=== PATIENT | female | born 1990 | race Caucasian/White ===

== ENCOUNTER 2016-11-18 12:11 | Emergency (ER) | payer MEDICAID, OTHER ==
[~2016-11-18] VITALS: Ht 154.9 cm; Wt 71.8 kg
[2016-11-18 12:48] VITALS: Ht 154.9 cm; Wt 71.8 kg
[2016-11-18] MEDS ORDERED: LORAZEPAM 1 MG TAB PO ONE (14:10)
--- NOTE | 2016-11-18 14:18 | ERA ---
ER Documentation Chief Complaint Date/Time DATE: 11/18/16 TIME: 14:14 Chief Complaint FAINTED THIS MORNING AT 10 AM, "I CANNOT FEEL MY HANDS/FEET" HPI 26-year-old female who presents with her . The patient describes an episode of syncope this morning around 10 AM. She states a prodrome of feeling worried, her hands started to become numb and she started to have cramping of bilateral hands and bilateral feet with perioral paresthesias. The patient then states that she was sitting in a chair her vision closing and she passed out. She denied any prodrome of chest pain but did no palpitations. She has noted increasing social stressors recently. She feels very anxious currently. No recent travel, immobilization, calf swelling, smoking, family history of DVT. She denies pleuritic pain. ROS All systems reviewed and are negative except as per history of present illness. Medications Home Meds Active Scripts Lorazepam* (Lorazepam*) 1 Mg Tablet, 1 MG PO Q8H Y for ANXIETY, #10 TAB Prov:JULIANA ROMERO MD 11/18/16 Cephalexin* (Keflex*) 500 Mg Capsule, 500 MG PO BID for 7 Days, CAP Prov:JULIANA ROMERO MD 11/18/16 Allergies Allergies: Coded Allergies: No Known Allergy (Unverified , 03/09/14) PMhx/Soc Medical and Surgical Hx: pt denies Medical Hx History of Surgery: No Anesthesia Reaction: No Hx Neurological Disorder: No Hx Respiratory Disorders: No Hx Cardiac Disorders: No Hx Psychiatric Problems: No Hx Miscellaneous Medical Probl: No Hx Alcohol Use: No Hx Substance Use: No Hx Tobacco Use: No FmHx Family History: No coronary disease, No diabetes Physical Exam Vitals Vital Signs Date Time Temp Pulse Resp B/P Pulse Ox O2 Delivery O2 Flow Rate FiO2 11/18/16 12:48 98.1 67 20 117/65 99 Physical Exam General: Extremely anxious with obvious carpopedal spasms Head: Normocephalic, atraumatic. Eyes: Pupils equally reactive, EOM intact ENT: Moist mucous membranes Neck: Supple, no lymphadenopathy Respiratory: Lungs clear bilaterally, no distress Cardiovascular: RRR, no murmurs, rubs, or gallops Abdominal: Soft, non-tender, non-distended, no peritoneal signs : Deferred MSK: No edema, no unilateral swelling, 5/5 strength, no pulse deficits Neurologic: Alert and oriented, moving all extremities, normal speech, no focal weakness, no cerebellar signs Skin: No rash Psych: Anxious mood Result Diagram: 11/18/16 1420 Results 24 hrs Laboratory Tests Test 11/18/16 14:20 11/18/16 14:21 White Blood Count 14.810^3/ul Red Blood Count 4.6010^6/ul Hemoglobin 13.6g/dl Hematocrit 42.2% Mean Corpuscular Volume 91.7fl Mean Corpuscular Hemoglobin 29.6pg Mean Corpuscular Hemoglobin Concent 32.2g/dl Red Cell Distribution Width 13.6% Platelet Count 35244^3/UL Mean Platelet Volume 9.4fl Neutrophils % 88.6% Lymphocytes % 8.7% Monocytes % 2.1% Eosinophils % 0.1% Basophils % 0.2% Nucleated Red Blood Cells % 0.0/100WBC Neutrophils # 13.110^3/ul Lymphocytes # 1.310^3/ul Monocytes # 0.310^3/ul Eosinophils # 0.010^3/ul Basophils # 0.010^3/ul Nucleated Red Blood Cells # 0.010^3/ul Serum HCG, Qualitative NEGATIVE Bedside Urine pH (LAB) 6.0 Bedside Urine Protein (LAB) Trace Bedside Urine Glucose (UA) Negative Bedside Urine Ketones (LAB) Trace Bedside Urine Blood 2+ Bedside Urine Nitrite (LAB) Positive Bedside Urine Leukocyte Esterase (L Trace Current Medications Medications (Trade) Dose Ordered Sig/Renetta Route PRN Reason Start Time Stop Time Status Last Admin Dose Admin Lorazepam (Ativan) 1 mg ONCE ONCE PO 11/18/16 14:10 11/18/16 14:11 DC 11/18/16 14:24 Procedures/MDM EKG, MONITORS, & DIAGNOSTIC IMAGING: EKG: I reviewed and interpreted a 12-lead EKG. Rhythm: Normal sinus rhythm Ectopy: None Intervals: No abnormalities ST segments: No elevations or depressions T waves: No contiguous inversions LAB INTERPRETATION: Negative hCG, no anemia, urinary tract infection MEDICAL DECISION MAKING: The patient presents with a syncopal episode that is very consistent with likely vasovagal syncope. The patient clearly describes what appears to be acute hyperventilation syndrome. The patient had carpal pedal spasms, perioral paresthesias and then a syncopal episode. The patient is extremely anxious in the emergency department. She has no prodrome of chest pain or shortness of breath. No pleuritic pain, no travel or immobilization. The patient meets the PERC RULE out criteria. Thus, less than 2% risk of pulmonary embolism with better alternative diagnosis. No indication for d-dimer or CT pulmonary angiogram at this time. No headache to suggest subarachnoid hemorrhage. She has no exertional syncope to suggest cardiomyopathy. No murmur. The patient was given reassurance. The patient states that she occasionally has heavy menstrual cycles. A CBC would be appropriate, EKG, hCG. If negative the patient can be safely discharged home with close primary care follow-up. I recommend stress reduction techniques. ER COURSE: Ativan provided. The patient's urine does suggest possible UTI. Slight leukocytosis reflective of this process. Patient will be started on Keflex. The patient has no signs of pyelonephritis. No fever. Patient has improved symptoms of Ativan. Outpatient follow-up recommended. I kept the patient and/or family informed of laboratory and diagnostic imaging results throughout the emergency room course. DISPOSITION PLAN: We discussed follow up with the patient's primary care doctor within 24 to 48 hours as needed. We also discussed return to the emergency room for worsening symptoms or worsening condition. Outpatient referral: [None required] Discharge Medications: Ativan, Keflex Departure Diagnosis: Primary Impression: Vasovagal syncope Additional Impressions: Acute hyperventilation syndrome UTI (urinary tract infection) Qualified Code: N39.0 - Urinary tract infection without hematuria, site unspecified Condition: Stable JULIANA ROMERO MD Nov 18, 2016 14:18
[2016-11-18 14:20] LABS: URINE BLOOD (Dip) POC 2+ (NEGATIVE)
[2016-11-18 14:32] LABS: ADD SCAN DIFF NO
[2016-11-18 14:34] LABS: BASOPHILS % 0.2 % (0.0-2.0); EOSINOPHILS % 0.1 % (0.0-7.0); HEMATOCRIT 42.2 % (37.0-47.0); HEMOGLOBIN 13.6 g/dl (12.0-16.0); LYMPHOCYTES # 1.3 10^3/ul (0.8-2.9); LYMPHOCYTES % 8.7 % (15.0-51.0); MEAN CORPUSCULAR HEMOGLOBIN 29.6 pg (29.0-33.0); MEAN CORPUSCULAR HGB CONC 32.2 g/dl (32.0-37.0); MEAN CORPUSCULAR VOLUME 91.7 fl (82.0-101.0); MEAN PLATELET VOLUME 9.4 fl (7.4-10.4); MONOCYTE # 0.3 10^3/ul (0.3-0.9); MONOCYTES % 2.1 % (0.0-11.0); NEUTROPHIL # 13.1 10^3/ul (1.6-7.5); NEUTROPHILS % 88.6 % (39.0-77.0); PLATELET COUNT 286 10^3/UL (140-415); RED CELL DISTRIBUTION WIDTH 13.6 % (11.5-14.5); WHITE BLOOD COUNT 14.8 10^3/ul (4.8-10.8)
[2016-11-18] MEDS ORDERED: LORA1TAB PO (14:53)
[2016-11-18] MEDS ORDERED: CEPH-443 PO (14:53)
== END 2016-11-18 15:17 | disposition home or self-care (01) ==
LOC: FTE 12:11
DX: F45.8 Other somatoform disorders (principal); N39.0 Urinary tract infection, site not specified
CPT/HCPCS: 81003; 84703; 85025; 93005; Z7502; Z7610